=== PATIENT | male | born 1960 | race Caucasian/White ===

== ENCOUNTER 2016-08-09 16:40 | Emergency (ER) | payer OTHER ==
--- NOTE | ~2016-08-09 | CT2 ---
[facility] A Service [facility] RADIOLOGY TEXT RESULTS PATIENT: SANDY JACQUES LOCATION: [facility] : 64 UNIT #: [id number] AGE: [address]: Alejandro Brewster DO SEX: M ORDER DR: [id number] [address] [address] [id number] E MR#: [id number] Acc #: [id number] NAME: SANDY JACQUES. : 1960 SEX: M STUDY DATE/TIME: 08/09/2016 22:42 UNIT: [facility] ROOM: STUDY DESCRIPTION: CT Abd and Pelv W Cont Attending Physician: Alejandro Brewster D.O. Ordering Physician: Ed Doctor [id number] [facility] Primary Care Physician: Nelson Nieves M.D. MEDICAL IMAGING REPORT This report is preliminary unless electronic signature is present EXAM CT abdomen and pelvis with contrast INDICATION Generalized abdominal pain and constipation for the past 7 days. PROCEDURE Contrast-enhanced CT of the abdomen and pelvis. This CT exam was performed with one or more of the following radiation dose reduction techniques: automatic exposure control, adjustment of mA and/or kV according to patient size, and iterative reconstruction. COMPARISON 12/24/2008 FINDINGS ABDOMEN WITH CONTRAST: The included lung bases are clear. Probable hepatic steatosis. The spleen, adrenal glands, pancreas gallbladder unremarkable. Postsurgical change in the sigmoid colon. Scattered uncomplicated sigmoid diverticula. Only minimal colonic stool. 1.8 cm cyst in the lower pole of the left kidney. PELVIS WITH CONTRAST: No pelvic mass or fluid. No aggressive appearing bone lesion. IMPRESSION 1. No acute findings. 2. Minimal colonic stool burden. 3. Likely hepatic steatosis. Dictated by... [facility] A Service [facility] RADIOLOGY TEXT RESULTS PATIENT: SANDY JACQUES LOCATION: [facility] : 64 UNIT #: [id number] AGE: [address]: Alejandro Brewster DO SEX: M ORDER DR: Shayne E. Ruma, M.D. THIS IS AN ELECTRONICALLY VERIFIED REPORT Shayne Hendrix M.D. at 08/14/2016 7:25 AM [place] TD: 08/10/2016 09:24 JOB #: [id number] MEDICAL IMAGING REPORT Page 1 of 1 COPY
[~2016-08-09 16:40] MED LIST: ACETAMINOPHEN PO; FLAGYL PO; FOLIC ACID PO; LEVAQUIN PO; LORTAB 7.5-5001 TAB PO; MULTIVITAMIN W/1 TAB PO; PROZAC PO; THIAMINE HCL100 MG PO
[2016-08-09 20:56] LABS: URINE SOURCE CLEAN CATCH
[2016-08-09 21:01] LABS: URINE APPEARANCE CLEAR; URINE BILIRUBIN NEG (NEG); URINE BLOOD NEG (NEG); URINE COLOR YELLOW; URINE GLUCOSE NEG (NEG); URINE KETONE NEG (NEG); URINE LEUKOCYTE ESTERASE NEG (NEG); URINE NITRATE NEG (NEG); URINE PROTEIN NEG (NEG); URINE SPECIFIC GRAVITY 1.009 (1.003-1.035); URINE UROBILINOGEN 0.2 MG/DL (NEG)
[2016-08-09 21:05] LABS: CULTURE INDICATED? NO
[2016-08-09 21:39] LABS: BASOPHIL# 0.1 X10e3 (0-0.3); BASOPHIL% 1.1 % (0-2.5); EOSINOPHIL# 0.1 X10e3 (0-0.7); EOSINOPHIL% 1.7 % (0.0-7.0); HEMATOCRIT 50.5 % (38.0-50.0); HEMOGLOBIN 17.3 gm/dL (13.0-16.0); LYMPHOCYTE# 2.8 X10e3 (1.0-3.5); LYMPHOCYTE% 38.1 % (17.0-45.0); MEAN CELL VOLUME 101.3 FL (83-96); MEAN CORPUSCULAR HEMOGLOBIN 34.7 PG (28-34); MEAN CORPUSCULAR HGB CONC 34.2 g/dL (30-36); MEAN PLATELET VOLUME 8.3 FL (6.5-11.5); MONOCYTE% 14.2 % (3.0-12.0); NEUTROPHIL# 3.2 X10e3 (1.5-7.1); NEUTROPHIL% 44.9 % (40-75); PLATELET COUNT 238 X10e3 (140-420); RED BLOOD COUNT 4.99 X10e (3.90-5.60); RED CELL DISTRIBUTION WIDTH 13.7 % (11.0-15.5); WHITE BLOOD COUNT 7.2 X10e3 (4.0-10.5)
[2016-08-09 21:54] LABS: DIFF IND NO
[2016-08-09 22:08] LABS: ALBUMIN SERUM 4.4 g/dL (3.5-5.0); BILIRUBIN, DIRECT 0.1 mg/dL (0.0-0.2); BILIRUBIN,INDIRECT 0.4 mg/dL (0.0-0.9); BILIRUBIN,TOTAL 0.5 mg/dL (0.2-2.0); BUN/CREATININE RATIO 6.66; CALCIUM SERUM 8.6 mg/dL (8.4-10.2); CREATININE SERUM 0.9 mg/dL (0.6-1.4); GLOM FILT RATE Estimated 96.5 mL/min (>60); POTASSIUM 4.2 mmol/L (3.5-5.1); PROTEIN TOTAL SERUM 8.2 g/dL (6.0-8.3)
== END 2016-08-10 06:40 ==
LOC: CED 16:40
PROVIDERS: Emergency Medicine
DX: K59.00 Constipation, unspecified (principal)
CPT/HCPCS: 36415; 74177; 80048; 80076; 81003; 82150; 83690; 85025; 99285; G0480; Q9967

== ENCOUNTER 2016-08-10 01:00 | Inpatient (IN) | payer OTHER ==
--- NOTE | ~2016-08-10 | DS ---
Unit #: [id number] #: [id number] [facility] [id number] [facility] [address] [place] [address] [id number] I MR#: [id number] NAME: SANDY JACQUES. ROOM: P175 Age: 56 Sex: M Admission Date: 08/10/2016 : 1960 Discharge Date: 08/14/2016 Attending Physician: Will Castellon M.D. Primary Care Physician: Nelson Nieves M.D. DISCHARGE SUMMARY IDENTIFYING DATA Mr. Jacques is a 56-year-old white male, who is a resident of [place], [place], and was transferred to us from [facility], where he presented with blood alcohol level of 0.225. DISCHARGE DIAGNOSES Psychiatric: Alcohol dependence, moderate and acute withdrawals; alcohol-induced mood disorder. Medical: Deafness in the left ear. Stressors: Mild psychosocial stressors. HISTORY OF PRESENT ILLNESS Please see initial psychiatric evaluation for details. PAST PSYCHIATRIC HISTORY Please see initial psychiatric evaluation for details. PAST MEDICAL HISTORY Please see initial psychiatric evaluation for details. HOSPITAL COURSE The patient was admitted to the adult chemical dependency unit at [facility] jo-ann Rosenbaum and was oriented to the hospital environment. Routine p.r.n. medications were initiated, and he was started back on his home medications including his Prozac and was closely monitored. He was seen to be anxious, withdrawn, and rather seclusive to himself and was difficult to be communicated with as he has deafness in the left ear; however, he was taking medications regularly and was tolerating them fairly well and was able to come out of the detox without any complications and was willing to continue treatment on an outpatient basis and was denying any suicidal or homicidal ideation and was not seen to be danger to self or anyone else and was not meeting any further criteria for inpatient psychiatric hospitalization and as such, it was decided that he will be discharged home and will continue treatment on an outpatient basis. DISCHARGE MEDICATIONS Prozac 40 mg a day for depression. DISCHARGE CONDITION Stable. PROGNOSIS Fair. Unit #: [id number] #: [id number] Patient: SANDY JACQUES Dictated by... Will Castellon M.D. IAA/modl TD: 08/14/2016 22:49 JOB #: [id number] DISCHARGE SUMMARY Page 1 of 1 X Will Castellon MD DISCHARGE SUMMARY
--- NOTE | ~2016-08-10 | PA ---
Unit #: [id number] #: [id number] Patient: SANDY OCAMPO [id number] [facility] [address] [place] [address] [id number] I MR#: [id number] NAME: SANDY OCAMPO. ROOM: P175 Age: 56 Sex: M Admission Date: 08/10/2016 : 1960 Date of Assessment: 08/10/2016 Attending Physician: Will Castellon M.D. Admitting Physician: Will Castellon M.D. Primary Care Physician: Nelson Nieves M.D. PSYCHIATRIC ASSESSMENT DATE OF SERVICE 08/10/2016. IDENTIFYING DATA Mr. Ocampo is a 56-year-old white male, who is a resident of [place], [place], and was transferred to us from [facility], where he presented with blood alcohol level of 0.225. CHIEF COMPLAINT "Suicide has crossed my mind." HISTORY OF PRESENT ILLNESS Mr. Ocampo is a 56-year-old white male with long history of alcohol dependence, who presented himself to the [facility] Emergency Room with a CIWA score of 15 indicating significant withdrawal symptoms and a blood alcohol level of 0.225 and a blood pressure of 136/94 and heart rate of 112 with respiratory rate of 21 and reports that he has been drinking 6 beers and 3 shots a day, and suicide has been crossing in mind and reports depression, anxiety, irritability, restlessness, disturbed sleep and appetite, poor energy level, psychomotor retardation, feelings of hopelessness and helplessness, and as such, recommendation for inpatient level of care for safety and stabilization was made, and the patient was transferred to us. SUBSTANCE ABUSE HISTORY The patient reports lifelong history of alcohol dependence as he stated that he has been drinking for almost 40 years and has been currently drinking several beers and a few shots on daily basis and denies any other drug abuse and reports alcohol to be his drug of choice. PAST PSYCHIATRIC HISTORY The patient denies any ongoing chemical dependency treatment, though he has been treated for depression and is currently on Prozac 40 mg a day. It appears that he has been getting it from his primary care provider; however, he has been mixing it with alcohol, and as such, has not been able to get a therapeutic response to the medication. PAST MEDICAL HISTORY The patient reports deafness in left ear. ALLERGIES No known medication allergies. Unit #: [id number] #: [id number] Patient: SANDY OCAMPO PERSONAL AND SOCIAL HISTORY A 56-year-old white male, who reports that he is single, unemployed, and and lives alone and has poor social support system. MENTAL STATUS EXAMINATION Middle-aged white male, who was casually dressed with fair personal hygiene, appears to be in no acute distress or discomfort. He was awake and alert on interaction with intact orientation. His mood was anxious and depressed with a congruent affect. His speech was slow and goal directed. He denies any suicidal or homicidal ideations and also denies any auditory or visual hallucinations. His insight and judgment remain slightly impaired. DIAGNOSTIC IMPRESSION Psychiatric: Alcohol dependence, moderate and acute withdrawals; alcohol-induced mood disorder. Medical: Deafness in the left ear. Stressors: Moderate psychosocial stressors. TREATMENT PLAN 1. The patient has presented with history of substance abuse and mood disorder, has been decompensating, and will need inpatient hospitalization for detoxification, safety, and stabilization. We will start him back on his home medications. We will adjust the medications and monitor response. 2. Supportive therapy was provided to the patient. ESTIMATED LENGTH OF STAY 4 to 5 days. ABILITY TO HELP SELF Limited. WILLINGNESS TO HELP SELF The patient appears to be willing to help self. STRENGTHS 1. Communicative. 2. Cooperative. PROBLEMS 1. Chronic dysphoric symptoms. 2. Chronic chemical dependency. 3. Poor social support system. DISCHARGE CRITERIA This will be contingent upon the patient's ability to show resolution of his depression and anxiety and his ability to stay safe to himself, particularly after discharge from the hospital. Dictated by... Will Castellon M.D. DAFNE/nicole TD: 08/11/2016 06:50 JOB #: [id number] Unit #: [id number] #: [id number] Patient: SANDY OCAMPO PSYCHIATRIC ASSESSMENT Page 1 of 1 X Will Castellon MD PSYCHIATRIC ASSESSMENT
--- NOTE | ~2016-08-10 | PN ---
Unit #: [id number] #: [id number] Patient: SANDY JACQUES [id number] [facility] [address] [place] [address] [id number] I MR#: [id number] NAME: SANDY JACQUES. ROOM: [facility] Age: 56 Sex: M Admission Date: 08/10/2016 : 1960 Attending Physician: Will Castellon M.D. Admitting Physician: Will Castellon M.D. Primary Care Physician: Jeana Trammell PROGRESS NOTES DATE OF SERVICE 08/11/2016 DISCUSSION Mr. Jacques is a 56-year-old white male who was seen today. Chart was reviewed and case was discussed with the staff. He was seen to be anxious, withdrawn, and seclusive to himself and appears to be (1) ___ distress and discomfort. Meanwhile, he has been cooperative with treatment recommendations and has been taking the medications and tolerating them fairly well with no reported side effects. MENTAL STATUS EXAMINATION Middle-aged white male who is casually dressed with fair personal hygiene, appears to be in no acute distress or discomfort. He was awake and alert on interaction with intact orientation. His mood is anxious with a congruent affect. Speech is slow and goal-directed. He denies any suicidal or homicidal ideations. His insight and judgment remain slightly impaired. TREATMENT PLAN 1. We will continue him on his current medications and treatment protocol. We will monitor his response to the medications and make further adjustments as needed. 2. We will continue to follow up. Dictated by... Jeana Villa/adithya TD: 08/11/2016 13:23 JOB #: [id number] Unit #: [id number] #: [id number] Patient: SANDY JACQUES PROGRESS NOTES Page 1 of 1 X Will Castellon MD PROGRESS NOTE
--- NOTE | ~2016-08-10 | HP ---
Unit #: [id number] #: [id number] Patient: SANDY JACQUES [id number] [place] [address] [id number] I MR#: [id number] NAME: SANDY JACQUES. ROOM: [facility] Age: 56 Sex: M Admission Date: 08/10/2016 : 1960 Attending Physician: Will Castellon M.D. Admitting Physician: Wlil Castellon M.D. Primary Care Physician: Nelson Nieves M.D. HISTORY AND PHYSICAL HISTORY OF PRESENT ILLNESS Sandy is a 56 year old admitted to [facility] because of his abuse of alcohol. He is detoxing. PAST MEDICAL HISTORY 1. Long history of alcohol abuse. 2. History of electrocution. 3. History of CHI. PAST SURGICAL HISTORY 1. Inguinal hernia repair. 2. Colon resection. ALLERGIES No known drug allergies. SOCIAL HISTORY Smokes 1 pack per day. Drinks at least 6 beers plus half pint of liquor on a daily basis. Denies illicit drug use. FAMILY HISTORY Medically noncontributory. REVIEW OF SYSTEMS CONSTITUTIONAL: No fever or chills. HEENT: Denies any sore throat, ear pain or runny nose. CARDIOVASCULAR: Denies chest pain, irregular heart rhythm or palpitations. CHEST: Denies shortness of breath or cough. No hemoptysis. GASTROINTESTINAL: Denies nausea, vomiting, diarrhea or chronic constipation. ENDOCRINE: Denies history of increased thirst or urination. No recent significant weight loss or gain. GENITOURINARY: Denies dysuria, frequency, or hematuria. SKIN: Denies any rashes. HEMATOLOGIC: Denies history of increased bleeding or bruising. MUSCULOSKELETAL: Denies any hot, swollen joints. No generalized muscle pain. NEUROLOGIC: Denies problems with vision or speech. No frequent, severe headaches. No numbness, tingling or weakness in any extremities. Denies loss of bladder or bowel control. CURRENT MEDICATIONS 1. Detox protocol. Unit #: [id number] #: [id number] Patient: SANDY JACQUES 2. Prozac 40 mg daily. PHYSICAL EXAMINATION GENERAL: Alert, well-nourished, in no apparent distress. VITAL SIGNS: Blood pressure 148/96, heart rate 80, respirations 16, temperature 98.6. WEIGHT: 165. HEIGHT: 5 feet 9 inches. SKIN: Warm and dry without rash or lesion. HEENT: Normocephalic. TMs not viewed. Oral and nasal passages clear. Conjunctivae clear. PERRLA. EOMs intact. NECK: Supple without lymphadenopathy or thyromegaly. HEART: Regular rate and rhythm without murmur. LUNGS: Clear. ABDOMEN: Soft, nontender. : Not done. EXTREMITIES: No evidence of cyanosis, clubbing or edema. Moves all without focal deficit. NEUROLOGICAL: Grossly within normal limits. Cranial Nerves: II: Visual gonsalves are intact. III, IV AND : Extraocular movements are intact. Pupils are equal, round and reactive to light. V: Facial sensation is grossly normal. VII: Facial movements and expression are normal. VIII: Auditory acuity grossly intact. IX, X: Uvula is midline. Phonation is normal. XI: Patient shrugs shoulders and turns head normally. XII: Tongue protrudes in the midline. Sensory and Motor Function: Sensory and motor sensation is grossly normal. Motor: moves all extremities well. Coordination: Gait is normal. Deep Tendon Reflexes: Intact. IMPRESSION Psychiatric admission. RECOMMENDATIONS PSYCHIATRIC: Per psychiatrist. MEDICAL: See no contraindications to participate in facility's activities. MEDICAL PROGNOSIS Good. MEDICAL CONDITION Stable. Dictated by... Erin Neal P.A.-Beau. for Jeana Mendez/tip TD: 08/10/2016 16:48 JOB #: [id number] Unit #: [id number] #: [id number] Patient: SANDY JACQUES HISTORY AND PHYSICAL Page 1 of 1 X Erin Neal HISTORY AND PHYSICAL
--- NOTE | ~2016-08-10 | PN ---
Unit #: [id number] #: [id number] Patient: SANDY OCAMPO [id number] [facility] [address] [place] [address] [id number] MR#: [id number] NAME: SANDY OCAMPO. ROOM: 75 Age: 56 Sex: M Admission Date: 08/10/2016 : 1960 Attending Physician: Will Castellon M.D. Admitting Physician: Will Castellon M.D. Primary Care Physician: Jeana Trammell PROGRESS NOTES DATE OF SERVICE 08/11/2016 DISCUSSION Mr. Ocampo is a 56-year-old white male who was seen today. Chart was reviewed and case was discussed with staff. He has been anxious, withdrawn in distress and discomfort and seclusive to himself and appears to be going through detox. Meanwhile, he has been taking the medications and tolerating them fairly well with no reported side effects. MENTAL STATUS EXAMINATION An elderly white male who is casually dressed with marginal personal hygiene, appears to be in slight distress or discomfort. He was awake and alert with impaired attention and concentration. His mood is anxious with a congruent affect. His speech is slow and restricted in content. He denies any suicidal or homicidal ideations. His insight and judgment remain significantly impaired. TREATMENT PLAN 1. We will continue him on his current medications and treatment protocol. We will monitor his response to the medications and make further adjustments as needed. 2. We will continue to follow up. Dictated by... Will Castellon M.D. IAA/bzg TD: 08/12/2016 12:09 JOB #: [id number] Unit #: [id number] #: [id number] Patient: SANDY OCAMPO EMI PROGRESS NOTES Page 1 of 1 X Will Castellon MD PROGRESS NOTE
--- NOTE | ~2016-08-10 | PN ---
Unit #: [id number] #: [id number] Patient: SANDY JACQUES [id number] [facility] [address] [place] [address] [id number] MR#: [id number] NAME: SANDY JACQUES. ROOM: P175 Age: 56 Sex: M Admission Date: 08/10/2016 : 1960 Attending Physician: Will Castellon M.D. Admitting Physician: Will Castellon M.D. Primary Care Physician: Jeana Trammell NOTES DATE OF SERVICE: 08/13/2016 SUBJECTIVE Mr. Jacques is a 56-year-old white male who was seen today and chart was reviewed and case was discussed with the staff. He has been anxious and withdrawn, though has been calm, cooperative, and compliant with treatment recommendations and has been rather seclusive to himself. Meanwhile, he has been taking the medications and tolerating them fairly well. MENTAL STATUS EXAMINATION Middle-aged white male who was casually dressed with fair personal hygiene, appears to be in no acute distress or discomfort. He was awake and alert on interaction with intact orientation. His mood was anxious with a congruent affect. He denies any suicidal or homicidal ideations. His insight and judgment remain slightly impaired. TREATMENT PLAN We will continue him on his current treatment protocol. We will monitor his response and make further adjustments as needed. Dictated by... Jeana Villa/nicole TD: 08/14/2016 23:17 JOB #: [id number] EMI PROGRESS NOTES Page 1 of 1 X Will Castellon MD PROGRESS NOTE
[2016-08-11 09:46] LABS: BASOPHIL% 0.7 % (0-2.5); EOSINOPHIL# 0.1 X10e3 (0-0.7); EOSINOPHIL% 1.5 % (0.0-7.0); HEMATOCRIT 50.5 % (38.0-50.0); HEMOGLOBIN 16.9 gm/dL (13.0-16.0); LYMPHOCYTE# 2.2 X10e3 (1.0-3.5); LYMPHOCYTE% 32.5 % (17.0-45.0); MEAN CELL VOLUME 102.6 FL (83-96); MEAN CORPUSCULAR HEMOGLOBIN 34.4 PG (28-34); MEAN CORPUSCULAR HGB CONC 33.5 g/dL (30-36); MEAN PLATELET VOLUME 8.6 FL (6.5-11.5); MONOCYTE# 0.8 X10e3 (0-1.0); MONOCYTE% 11.7 % (3.0-12.0); NEUTROPHIL# 3.6 X10e3 (1.5-7.1); NEUTROPHIL% 53.6 % (40-75); PLATELET COUNT 228 X10e3 (140-420); RED BLOOD COUNT 4.92 X10e (3.90-5.60); RED CELL DISTRIBUTION WIDTH 13.7 % (11.0-15.5); WHITE BLOOD COUNT 6.8 X10e3 (4.0-10.5)
[2016-08-11 09:56] LABS: DIFF IND NO
[2016-08-11 10:20] LABS: BILIRUBIN,TOTAL 1.1 mg/dL (0.2-2.0); BUN/CREATININE RATIO 16.66; CALCIUM SERUM 9.3 mg/dL (8.4-10.2); CREATININE SERUM 0.9 mg/dL (0.6-1.4); GLOM FILT RATE Estimated 96.5 mL/min (>60); POTASSIUM 4.7 mmol/L (3.5-5.1); PROTEIN TOTAL SERUM 7.4 g/dL (6.0-8.3)
[2016-08-12 14:45] LABS: URINE APPEARANCE TURBID; URINE BILIRUBIN NEG (NEG); URINE BLOOD NEG (NEG); URINE COLOR DK YELLOW; URINE GLUCOSE NEG (NEG); URINE KETONE NEG (NEG); URINE LEUKOCYTE ESTERASE NEG (NEG); URINE NITRATE NEG (NEG); URINE PROTEIN NEG (NEG); URINE SPECIFIC GRAVITY 1.025 (1.003-1.035); URINE UROBILINOGEN 0.2 MG/DL (NEG)
[2016-08-12 15:00] LABS: AMPHETAMINE NEG (NEG); BARBITURATES NEG (NEG); BENZODIAZEPINES POS (NEG); COCAINE NEG (NEG); MARIJUANA POS (NEG); OPIATES NEG (NEG); TRICYCLIC ANTIDEPRESSANTS NEG (NEG); U METHADONE NEG (NEG)
== END 2016-08-14 10:42 | disposition home or self-care (01) | DRG 897 ==
LOC: P1E 07:39
PROVIDERS: Psychiatry & Neurology Psychiatry
PROC: HZ2ZZZZ Detoxification Services for Substance Abuse Treatment (ICD-10-PCS; principal; 2016-08-10)
DX: F10.239 Alcohol dependence with withdrawal, unspecified (principal); F10.24 Alcohol dependence with alcohol-induced mood disorder; F17.210 Nicotine dependence, cigarettes, uncomplicated; H91.8X2 Other specified hearing loss, left ear
CPT/HCPCS: 80053; 80307; 81003; 85025; 86592